=== PATIENT | male | born 1965 | race Caucasian/White ===

== ENCOUNTER 2017-01-09 09:06 | Day surgery (SDC) | payer OTHER ==
[2017-01-09] MEDS ORDERED: LACTATED RINGERS 1,000 ML IV ONE (10:04)
[2017-01-09] MEDS ORDERED: fentaNYL 100 MCG/2 ML VIAL IVP ONE (11:19)
[2017-01-09] MEDS ORDERED: MIDAZOLAM 2 MG/2 ML VIAL IVP ONE (11:19)
== END 2017-01-09 09:07 | disposition home or self-care (01) ==
PROC: 0DBN8ZX Excision of Sigmoid Colon, Via Natural or Artificial Opening Endoscopic, Diagnostic (ICD-10-PCS; principal; 2017-01-09 10:30)
DX: Z12.11 Encounter for screening for malignant neoplasm of colon (principal); D12.7 Benign neoplasm of rectosigmoid junction; K21.9 Gastro-esophageal reflux disease without esophagitis; I10 Essential (primary) hypertension; G47.30 Sleep apnea, unspecified
CPT/HCPCS: 45380; J7120

== ENCOUNTER 2017-08-22 08:42 | Outpatient (CLI) | payer OTHER | END 2017-08-22 08:43 | disposition home or self-care (01) | LOC: SC 08:42 | PROVIDERS: ATTEND Specialist | DX: G47.33 Obstructive sleep apnea (adult) (pediatric) (principal) | CPT/HCPCS: 99212; 99214 ==

== ENCOUNTER 2020-07-11 08:19 | Outpatient (CLI) | payer OTHER ==
--- NOTE | 2020-07-11 08:56 | SLEEP CARE CONSULTATION ---
Information from patient questionnaire entered by Rowan Lackey. I have reviewed and concur with the information entered by Rowan Lackey. This document represents the service I personally performed and the decisions made by , Sophia Ramirez ARNP. History of Present Illness Service Date and Time: 07/11/2020818 Previous diagnosis: Moderate, Obstructive Sleep Apnea-Hypopnea Syndrome AHI: 15.3 (in 2008) Reason for follow up: annual (last seen 2017) Equipment type: CPAP Equipment obtained from: [facility] (unable to get supplies, DME no longer doing supplies) Mask style: Nasal pillows Backup mask available: Yes (old mask) Last cushion change: 2 months Prior sleep studies: Yes Year and Where: 2008 - [facility] Type of Sleep Study: Polysomnography HPI additional information: RUTHY SANTOYO was diagnosed to have moderate, AHI 15.3, obstructive sleep apnea-hypopnea syndrome and returns today for CPAP therapy reestablish care follow-up. CPAP Compliance Data - Data Reviewed with Patient Average duration of nightly device use: 5.9 Compliance rate %: 86.7 Current pressure setting (cmH2O): 5 Humidity settin Heated hose settin Average residual AHI: 2.0 Central apnea: 0.4 Obstructive apnea: 0.5 Average large leak: 1 minute, 4 seconds Subjective Missed days of use due to: reports: illness Patient concerns: denies: aerophagia, mask discomfort, air blowing in eyes, mask leak noise (only if he doesn't shave), condensation in mask/hose, nasal con gestion, dry mouth, nose, throat, epistaxis, other Observed to snore while using device: No Current pressure setting perceived as: comfortable On therapy, patient: reports: sleeping better, awakening more refreshed, being more awake and alert during the day, more rested overall. denies: drowsiness while driving Initial [place] Sleepiness Scale score: 15 (in 2008) Current [place] Sleepiness Scale score: 7 Allergies and Home Medications Drug allergies reviewed: Yes (NKDA) Home medication list reviewed: Yes (Prilosec) Review of Systems Review of systems same as previous: Yes (no changes) Physical Exam Heart Rate: 80 O2 Saturation: 98 Height: 5 ft 9 in Weight: 218 lb Body Mass Index: 32.1 BMI Classification: Obese Impression and Plan 1. Obstructive Sleep Apnea-Hypopnea Syndrome, moderate, with good treatment compliance and good apnea control. On CPAP therapy, the patient has better sleep quality and is more rested overall. Obesity increases the risk of apnea, CPAP p ressure requirements and overall health risks especially cardiovascular and diabetes. Thus patient is advised to lose weight. A diet consultation can be helpful in achieving optimal weight loss goals. Patient encouraged to discuss weightloss with his PCP. The BMI chart was reviewed. Patient's apnea severity and rationale for treatment to reduce apnea, improve sleep quality and reduce cardiovascular and cerebrovascular events was reviewed. I also reviewed the benefit of consistent device use of CPAP for hypertension, gastric reflux, and depression/anxiety. Patient was getting supplies from [employer] and they no longer do CPAP supplies, he will need to transfer to get supplies. Patient was informed that another DME can be used. I will have my branch coordinator inform of DME options. A DWO prescription will then be made. Patient advised to contact this office if further supply problems. * Continue CPAP pressure at 5 cmH2O * Transfer DME * Notify me if snoring with mask or feeling that the pressure is too much or too little * Attempt to lose weight * Call this office if any problems using CPAP * Return for follow up in 1 year, or sooner if concerns arise Counseling Topics: Spare mask, Weight loss health impact Visit Type: In Office Time Spent with Patient (minutes): 21 Provider Statement: I spent 100% of the Face to Face Visit with the patient with greater than 50% spent counseling the patient and coordination of care.
== END 2020-07-11 08:20 | disposition home or self-care (01) ==
LOC: SC 08:19
PROVIDERS: ATTEND Nurse Practitioner Family
DX: G47.33 Obstructive sleep apnea (adult) (pediatric) (principal); E66.9 Obesity, unspecified; Z68.32 Body mass index [BMI] 32.0-32.9, adult
CPT/HCPCS: 99212

== ENCOUNTER 2022-09-28 11:40 | Emergency (ER) | payer OTHER ==
[2022-09-28 12:17] LABS: BASOPHILS # (AUTO) 0.1 10^3/uL (0.0-0.1); BASOPHILS % (AUTO) 1.1 %; EOSINOPHILS # (AUTO) 0.1 10^3/uL (0.0-0.7); EOSINOPHILS % (AUTO) 1.3 %; HGB - HEMOGLOBIN 15.1 g/dL (14.0-18.0); LYMPHOCYTES # (AUTO) 1.1 10^3/uL (1.5-3.5); LYMPHOCYTES % (AUTO) 23.9 %; MEAN CORPUSCULAR HEMOGLOBIN 30.9 pg (27.0-31.0); MEAN CORPUSCULAR HGB CONC 34.3 g/dL (32.0-36.0); MEAN PLATELET VOLUME 8.8 fL (7.4-11.4); MONOCYTES # (AUTO) 0.3 10^3/uL (0.0-1.0); MONOCYTES % (AUTO) 6.3 %; NEUTROPHILS # (AUTO) 3.2 10^3/uL (1.5-6.6); NEUTROPHILS % (AUTO) 67.2 %; PLT - PLATELET COUNT 290 10^3/uL (130-450); RED BLOOD COUNT 4.89 10^6/uL (4.70-6.10); RED CELL DISTRIBUTION WIDTH 13.8 % (12.0-15.0); WHITE BLOOD COUNT 4.7 x10^3/uL (4.8-10.8)
[2022-09-28 12:31] LABS: ACETAMINOPHEN < 10 ug/mL (10-30); ALBUMIN 4.4 g/dL (3.2-5.5); ALBUMIN/GLOBULIN RATIO 1.3 (1.0-2.2); ALKALINE PHOSPHATASE 83 IU/L (42-121); ALT ALANINE AMINOTRANSFERASE 26 IU/L (10-60); AST ASPARTATE AMINOTRANSFERASE 20 IU/L (10-42); BILIRUBIN,TOTAL 0.7 mg/dL (0.2-1.0); BUN - BLOOD UREA NITROGEN 22 mg/dL (6-20); CALCIUM 9.6 mg/dL (8.5-10.3); CARBON DIOXIDE - CO2 27 mmol/L (21-32); CHLORIDE 102 mmol/L (101-111); CREATININE 0.9 mg/dL (0.6-1.2); ETOH - ETHANOL 5.1 mg/dL; GFR - MDRD 87 (>89); GLUCOSE 118 mg/dL (70-100); LIPASE 44 U/L (22-51); SALICYLATE < 6.0 mg/dL; SODIUM 137 mmol/L (135-145); TOTAL PROTEIN 7.7 g/dL (6.7-8.2)
--- NOTE | 2022-09-28 12:42 | ED Physician Documentation ---
History of Present Illness - Stated complaint Stated Complaint: SI - Chief complaint Chief Complaint: MHE - History obtained from History obtained from: Patient, Family - History of Present Illness Pain level max: 0 Pain level now: 0 - Additonal information Additional information: 57-year-old male states that he has a longstanding history of depression. He states that he was seeing a psychiatrist, therapist and had a primary care provider that was prescribing his medications for him but his primary care provider in 2013. He has not been on any medication since then. He was meeting with a new provider today and told him that he had thoughts of suicide, but was not actively suicidal at the moment. They sent him here for evaluation. Patient lives at home with his and his 16-year-old son. He states that he was on several medications in the past including lithium and adderall. Review of Systems Constitutional: denies: Fever, Chills GI: denies: Vomiting Skin: denies: Rash Musculoskeletal: denies: Neck pain, Back pain Neurologic: denies: Headache PD PAST MEDICAL HISTORY - Past Medical History Past Medical History: Yes Cardiovascular: Hypertension Respiratory: Sleep apnea, CPAP use Endocrine/Autoimmune: None GI: GERD : Kidney stones HEENT: None Psych: Bipolar disorder, ADD/ADHD, Claustrophobia Musculoskeletal: None Derm: None - Past Surgical History Past Surgical History: Yes General: Other Ortho: Carpal Tunnel surgery - Present Medications Home Medications: Ambulatory Orders Medication Instructions Recorded Confirmed Omeprazole [PriLOSEC] 40 mg PO BID 01/08/17 01/09/17 Tamsulosin [Flomax] 0.4 mg PO DAILY 01/08/17 01/09/17 - Allergies Allergies/Adverse Reactions: Allergies Allergy/AdvReac Type Severity Reaction Status Date / Time No Known Drug Allergies Allergy Verified 09/28/22 12:00 - Social History Does the pt smoke?: No Smoking Status: Never smoker Does the pt drink ETOH?: No Does the pt have substance abuse?: No - Immunizations Immunizations are current?: Yes - POLST Patient has POLST: No PD ED PE NORMAL - Vitals Vital signs reviewed: Yes - General General: Alert and oriented X 3, No acute distress - HEENT HEENT: PERRL, Moist mucous membranes - Neck Neck: Supple, no meningeal sign - Cardiac Cardiac: RRR - Respiratory Respiratory: No respiratory distress, Clear bilaterally - Abdomen Abdomen: Soft, Non tender, Non distended - Back Back: No CVA TTP, No spinal TTP - Derm Derm: Warm and dry, No rash - Extremities Extremities: No edema, No calf tenderness / cord - Neuro Neuro: Alert and oriented X 3 - Psych Psych: Normal mood, Normal affect Results - Vitals Vitals: Vital Signs - 24 hr 09/28/22 11:56 Temperature 36.6 C Heart Rate 83 Respiratory 14 Rate Blood Pressure 132/82 H O2 Saturation 99 Oxygen O2 Source Room air - Labs Labs: Laboratory Tests 09/28/22 09/28/22 09/28/22 12:13 12:13 12:13 WBC 4.7 L RBC 4.89 Hgb 15.1 Hct 44.0 MCV 90.0 MCH 30.9 MCHC 34.3 RDW 13.8 Plt Count 290 MPV 8.8 Neut # (Auto) 3.2 Lymph # (Auto) 1.1 L [place] # (Auto) 0.3 Eos # (Auto) 0.1 Baso # (Auto) 0.1 Absolute Nucleated RBC 0.00 Nucleated RBC % 0.0 Sodium 137 Potassium 4.0 Chloride 102 Carbon Dioxide 27 Anion Gap 8.0 BUN 22 H Creatinine 0.9 Estimated GFR (MDRD) 87 L Glucose 118 H Calcium 9.6 Total Bilirubin 0.7 AST 20 ALT 26 Alkaline Phosphatase 83 Total Protein 7.7 Albumin 4.4 Globulin 3.3 Albumin/Globulin Ratio 1.3 Lipase 44 TSH 1.07 Urine Color Urine Clarity Urine pH Ur Specific Wheeler Urine Protein Urine Glucose (UA) Urine Ketones Urine Occult Blood Urine Nitrite Urine Bilirubin Urine Urobilinogen Ur Leukocyte Esterase Ur Microscopic Review Urine Culture Comments Salicylates < 6.0 Urine Opiates Screen Ur Oxycodone Screen Urine Methadone Screen Ur Propoxyphene Screen Acetaminophen < 10 L Ur Barbiturates Screen Ur Tricyclics Screen Ur Phencyclidine Scrn Ur Amphetamine Screen U Methamphetamines Scrn U Benzodiazepines Scrn Urine Cocaine Screen U Cannabinoids Screen Ethyl Alcohol 5.1 SARS-CoV-2 (PCR) 09/28/22 09/28/22 12:51 12:54 WBC RBC Hgb Hct MCV MCH MCHC RDW Plt Count MPV Neut # (Auto) Lymph # (Auto) [place] # (Auto) Eos # (Auto) Baso # (Auto) Absolute Nucleated RBC Nucleated RBC % Sodium Potassium Chloride Carbon Dioxide Anion Gap BUN Creatinine Estimated GFR (MDRD) Glucose Calcium Total Bilirubin AST ALT Alkaline Phosphatase Total Protein Albumin Globulin Albumin/Globulin Ratio Lipase TSH Urine Color YELLOW Urine Clarity CLEAR Urine pH 7.0 Ur Specific Wheeler 1.010 Urine Protein NEGATIVE Urine Glucose (UA) NEGATIVE Urine Ketones NEGATIVE Urine Occult Blood NEGATIVE Urine Nitrite NEGATIVE Urine Bilirubin NEGATIVE Urine Urobilinogen 0.2 (NORMAL) Ur Leukocyte Esterase NEGATIVE Ur Microscopic Review NOT INDICATED Urine Culture Comments NOT INDICATED Salicylates Urine Opiates Screen NEGATIVE Ur Oxycodone Screen NEGATIVE Urine Methadone Screen NEGATIVE Ur Propoxyphene Screen NEGATIVE Acetaminophen Ur Barbiturates Screen NEGATIVE Ur Tricyclics Screen NEGATIVE Ur Phencyclidine Scrn NEGATIVE Ur Amphetamine Screen NEGATIVE U Methamphetamines Scrn NEGATIVE U Benzodiazepines Scrn NEGATIVE Urine Cocaine Screen NEGATIVE U Cannabinoids Screen NEGATIVE Ethyl Alcohol SARS-CoV-2 (PCR) NOT DETECTED PD Medical Decision Making - ED course Complexity details: reviewed results, re-evaluated patient, considered differential, d/w patient, d/w senior energy consultant ED course: Patient is medically clear for psychiatric care. Social work was consulted. His laboratory testing including CBC, ER abdominal panel, TSH, urinalysis, tox screen, salicylate, acetaminophen, ethyl alcohol are all negative. COVID test is negative. Social work evaluated the patient and patient agrees for voluntary hospitalization. Patient is graciously accepted to [facility]. COBRA forms completed. This document was made in part using voice recognition software. While efforts are made to proofread this document, sound alike and grammatical errors may occur. Departure - Departure Disposition: [facility] Psych Hosp/Unit DC/Xfer Clinical Impression: Suicidal ideation Condition: Stable
[2022-09-28 12:58] LABS: MUDS CUTOFF CONCENTRATIONS CUTOFF CONC BELOW:
[2022-09-28 13:07] LABS: BILIRUBIN,URINE NEGATIVE (NEGATIVE); GLUCOSE, URINE (UA) NEGATIVE (NEGATIVE); KETONES,URINE (UA) NEGATIVE (NEGATIVE); LEUKOCYTE ESTERASE, URINE NEGATIVE (NEGATIVE); NITRITE,URINE NEGATIVE (NEGATIVE); OCCULT BLOOD,URINE NEGATIVE (NEGATIVE); PROTEIN,URINE NEGATIVE (NEGATIVE); UROBILINOGEN,URINE 0.2 (NORMAL) E.U./dL (NORMAL)
[2022-09-28 13:10] LABS: CLARITY,URINE CLEAR (CLEAR)
[2022-09-28 13:17] LABS: AMPHETAMINE SCREEN,URINE NEGATIVE (NEGATIVE); BARBITURATE SCREEN,UR NEGATIVE (NEGATIVE); BENZODIAZEPINES SCREEN, URINE NEGATIVE (NEGATIVE); COCAINE SCREEN URINE NEGATIVE (NEGATIVE); METHADONE SCREEN, URINE NEGATIVE (NEGATIVE); METHAMPHETAMINES SCREEN, URINE NEGATIVE (NEGATIVE); OPIATE SCREEN, URINE NEGATIVE (NEGATIVE); OXYCODONE SCREEN, URINE NEGATIVE (NEGATIVE); PROPOXYPHENE SCREEN, URINE NEGATIVE (NEGATIVE); THC CANNABINOID SCREEN, URINE NEGATIVE (NEGATIVE); TRICYCLIC ANTIDEPRESSANT,URINE NEGATIVE (NEGATIVE)
[2022-09-28 20:35] VITALS: BP 131/93
== END 2022-09-29 01:30 ==
LOC: ED 11:40
DX: R45.851 Suicidal ideations (principal); Z20.822 Contact with and (suspected) exposure to COVID-19; F31.9 Bipolar disorder, unspecified
CPT/HCPCS: 36415; 80053; 80306; 80307; 80320; 80329; 81001; 81003; 83690; 84443; 85025; 87086; 99285

== ENCOUNTER 2023-01-02 15:47 | Outpatient (CLI) | payer OTHER ==
[2023-01-02 16:19] VITALS: BP 122/76
--- NOTE | 2023-01-02 16:19 | SLEEP CARE CONSULTATION ---
Information from patient questionnaire entered by Lindsay Armstrong. I have reviewed and concur with the information entered by Lindsay Armstrong. This document represents the service I personally performed and the decisions made by , Sophia Ramirez ARNP. History of Present Illness Service Date and Time: 01/02/2023 1547 Previous diagnosis: Moderate, Obstructive Sleep Apnea-Hypopnea Syndrome AHI: 15.3 (in 2008) Reason for follow up: annual (LAST SEEN 09/2019) Equipment type: CPAP (FRANCES REMstar 60 series, s/u 01/2015; D CARD NEEDED FOR DOWNLOAD AND PRESSURE CHANGES) Equipment obtained from: [facility] (unable to get supplies, DME no longer doing supplies) Mask style: Nasal Backup mask available: No Prior sleep studies: Yes Year and Where: 2008 - [facility] Type of Sleep Study: Polysomnography HPI additional information: RUTHY SANTOYO was diagnosed to have moderate, AHI 15.3, obstructive sleep apnea-hypopnea syndrome and returned today for CPAP therapy annual follow-up. Sleep Study - Results Type of Sleep Study: Polysomnography Prior sleep studies: Yes Year and Where: 2008 - [facility] CPAP Compliance Data - Data Reviewed with Patient Average duration of nightly device use: 3 hours 33 minutes Compliance rate %: 42.8 (130/180 days used) Current pressure setting (cmH2O): 5 Average residual AHI: 1.9 Average large leak: 7 secs Subjective Missed days of use due to: reports: family emergency, travel, other (back pain, compressed L4-5) Patient concerns: reports: air blowing in eyes, mask leak noise, dry mouth, nose, throat, other (machine making noises). denies: aerophagia, mask discomfort, condensation in mask/hose, nasal congestion, epistaxis Observed to snore while using device: No Current pressure setting perceived as: comfortable On therapy, patient: reports: sleeping better, more rested overall. denies: drowsiness while driving Initial [place] Sleepiness Scale score: 15 (in 2008) Current [place] Sleepiness Scale score: 8 (01/02/23) Allergies and Home Medications Known drug allergies: No Drug allergies reviewed: Yes Home medication list reviewed: Yes Allergy and home medication list: Allergies No Known Drug Allergies Allergy New Medications: Omeprazole Trazodone Hydroxyzine Quetiapine fumarte Sertraline Review of Systems Review of systems same as previous: No (back pain/sciatica) Physical Exam Vital signs obtained and entered by: LINDSAY Norris MA Blood Pressure: 122/76 (LEFT ARM) Cuff size: regular Heart Rate: 106 O2 Saturation: 98 Height: 5 ft 9 in Weight: 217 lb 3.2 oz Body Mass Index: 32.1 BMI Classification: Obese Impression and Plan 1. Obstructive Sleep Apnea-Hypopnea Syndrome, moderate, with fair treatment compliance and good apnea control. On CPAP therapy, the patient has better sleep quality and is more rested overall. He has had many issues with back/sciatica pain which limits his ability to sleep. Once he is awake, he cannot go back to sleep and his compliance has suffered. I encouraged him to try to get at least four hour to reach compliance on days he uses his CPAP. He states he also needs supplies. He has not gotten any for a long time and he is reusing his old set which is stretched out and leaking around the cushion. I will have my pharmacy operations coordinator inform of DME options. A DWO prescription will then be made. Patient advised to contact this office if further supply problems. He has a K[employer]i REMstar machine that he received in 2014. He did not think his machine was on the recall and so he did not register it. He cannot use machine recently because it is making loud noises that wake him up and keep him awake. The patients CPAP is over 5 years old and of reasonable use. In addition, it is starting to make louder noise, a sign of malfunction. Thus, the CPAP will be updated. A DWO prescription will be made. Compliance guidelines for new device and follow up discussed. Patient's apnea severity and rationale for treatment to reduce apnea, improve sleep quality and reduce cardiovascular and cerebrovascular events was reviewed. I also reviewed the benefit of consistent device use of CPAP for hypertension, gastric reflux, depression and anxiety. 2. Obesity, unspecified. Currently patients BMI is 32.1. Obesity increases the risk of apnea, CPAP pressure requirements and overall health risks especially cardiovascular and diabetes. Thus patient is advised to lose weight. * Continue CPAP pressure at 5 cmH2O * Transfer DME * Update machine * Update supplies * Notify me if snoring with mask or feeling that the pressure is too much or too little * Attempt to lose weight * Call this office if any problems using CPAP * Return for follow up one month after he obtains his new device, or sooner if concerns arise Counseling Topics: Spare mask, Weight loss health impact Visit Type: In Office Time Spent with Patient (minutes): 20 Provider Statement: I spent 100% of the Face to Face Visit with the patient with greater than 50% spent counseling the patient and coordination of care.
== END 2023-01-02 15:48 | disposition home or self-care (01) ==
LOC: SC 15:47
PROVIDERS: ATTEND Nurse Practitioner Family
DX: G47.33 Obstructive sleep apnea (adult) (pediatric) (principal); E66.9 Obesity, unspecified; Z68.32 Body mass index [BMI] 32.0-32.9, adult
CPT/HCPCS: 99212; 99213

== ENCOUNTER 2023-02-26 11:26 | Outpatient (CLI) | payer OTHER ==
--- NOTE | 2023-02-26 11:55 | SLEEP CARE CONSULTATION ---
Information from patient questionnaire entered by Peter Armstrong. I have reviewed and concur with the information entered by Peter Armstrong. This document represents the service I personally performed and the decisions made by me, Sophia Ramirez ARNP. History of Present Illness Service Date and Time: 02/26/2023 1126 Previous diagnosis: Moderate, Obstructive Sleep Apnea-Hypopnea Syndrome AHI: 15.3 (in 2008) Reason for follow up: first compliance after device update Equipment type: CPAP (RESMED Airsense 11, s/u 01/2023) Equipment obtained from: Other (getting supplies) Mask style: Nasal Mask brand: Respironics ([place]) Backup mask available: Yes (old mask) Last cushion change: 1 month Prior sleep studies: Yes Year and Where: 2008 - [facility] Type of Sleep Study: Polysomnography HPI additional information: RUTHY SANTOYO was diagnosed to have moderate, AHI 15.3, obstructive sleep apnea-hypopnea syndrome and returned today for CPAP therapy first compliance after updating device follow-up. Sleep Study - Results Type of Sleep Study: Polysomnography Prior sleep studies: Yes Year and Where: 2008 - [facility] CPAP Compliance Data - Data Reviewed with Patient Average duration of nightly device use: 7 HRS 47 MIN Compliance rate %: 100 (01/26/23-02/24/23; days used) Current pressure setting (cmH2O): 5 Average residual AHI: 1.3 Central apnea: 0.3 Obstructive apnea: 0.9 Average large leak: 1 LPM Subjective Patient concerns: denies: aerophagia, mask discomfort, air blowing in eyes, mask leak noise, condensation in mask/hose, nasal congestion, dry mouth, nose, throat, epistaxis Observed to snore while using device: No Current pressure setting perceived as: comfortable On therapy, patient: reports: sleeping better, awakening more refreshed, being more awake and alert during the day, more rested overall. denies: drowsiness while driving Initial [place] Sleepiness Scale score: 15 (in 2008) Current [place] Sleepiness Scale score: 11 (02/26/23) Allergies and Home Medications Known drug allergies: No Drug allergies reviewed: Yes Home medication list reviewed: Yes (Aspirin, Metoprolol, Tamsulosin) Allergy and home medication list: Allergies No Known Drug Allergies Allergy (Verified 02/25/23 16:08) Review of Systems Review of systems same as previous: No (Atrial Fibrillation; will be having proc edure to get back into rhythm) Physical Exam Vital signs obtained and entered by: PETER Norris MA Blood Pressure: 118/70 (LEFT ARM) Cuff size: long Heart Rate: 101 O2 Saturation: 97 Height: 5 ft 9 in Weight: 222 lb 3.2 oz Body Mass Index: 32.8 BMI Classification: Obese Impression and Plan 1. Obstructive Sleep Apnea-Hypopnea Syndrome, moderate, with good treatment compliance and good apnea control. On CPAP therapy, the patient has better sleep quality and is more rested overall. He was just diagnosed with AFib and will be having a conversion sometime in April-May after his vactions. He has had some fatigue from this condition. He has significant improvement of his sleep apnea and is satisfied with current CPAP therapy. Patient denies problems with oral dryness, nasal congestion, epistaxis, skin irritation or aerophagia. Patient's apnea severity and rationale for treatment to reduce apnea, improve sleep quality and reduce cardiovascular and cerebrovascular events was reviewed. I also reviewed the benefit of consistent device use of CPAP for hypertension, gastric reflux, depression and anxiety. 2. Obesity, unspecified. Currently patients BMI is 32.8. Obesity increases the risk of apnea, CPAP pressure requirements and overall health risks especially cardiovascular and diabetes. Thus patient is advised to lose weight. * Continue CPAP pressure at 5 cmH2O * Notify me if snoring with mask or feeling that the pressure is too much or too little * Attempt to lose weight * Call this office if any problems using CPAP * Return for follow up in 1 year, or sooner if concerns arise Counseling Topics: Weight loss health impact Visit Type: In Office Time Spent with Patient (minutes): 10 Provider Statement: I spent 100% of the Face to Face Visit with the patient with greater than 50% spent counseling the patient and coordination of care.
[2023-02-26 11:59] VITALS: BP 118/70
== END 2023-02-26 11:27 | disposition home or self-care (01) ==
LOC: SC 11:26
PROVIDERS: ATTEND Nurse Practitioner Family
DX: G47.33 Obstructive sleep apnea (adult) (pediatric) (principal); E66.9 Obesity, unspecified; Z68.32 Body mass index [BMI] 32.0-32.9, adult
CPT/HCPCS: 99212

== ENCOUNTER 2024-04-10 08:21 | Outpatient (CLI) | payer OTHER ==
--- NOTE | 2024-04-10 08:55 | Sleep Patient Instructions ---
Sleep Center Visit Summary - Patient Visit Information Reason for Visit: Annual follow-up for CPAP therapy - Patient Instructions Additional Instructions: You will continue with CPAP therapy with pressure set at 5 cmH2O. A supply prescription will be updated with your DME. We encourage you to continue to try to lose weight. Please follow up with the sleep care office in 1 year. - Clinic Information Contact: [facility] [address] [place] [address] [email or web address] T: [phone]
--- NOTE | 2024-04-10 08:58 | SLEEP CARE CONSULTATION ---
Information from patient questionnaire entered by Peter Armstrong. I have reviewed and concur with the information entered by Peter Armstrong. This document represents the service I personally performed and the decisions made by me, Sophia Ramirez ARNP. History of Present Illness Service Date and Time: 04/10/2024820 Previous diagnosis: Moderate, Obstructive Sleep Apnea-Hypopnea Syndrome AHI: 15.3 (in 2008) Reason for follow up: annual (LAST SEEN 02/2023) Equipment type: CPAP (RESMED Airsense 11, s/u 01/2023) Equipment obtained from: Other (getting supplies from [place] and [facility]) Mask style: Nasal (over the nose) Backup mask available: Yes (old mask) Last cushion change: few weeks Prior sleep studies: Yes Year and Where: 2008 - [facility] Type of Sleep Study: Polysomnography HPI additional information: RUTHY SANTOYO was diagnosed to have moderate, AHI 15.3, obstructive sleep apnea-hypopnea syndrome and returned today for CPAP therapy annual follow-up. Sleep Study - Results Type of Sleep Study: Polysomnography Prior sleep studies: Yes Year and Where: 2008 - [facility] CPAP Compliance Data - Data Reviewed with Patient Average duration of nightly device use: 7 HRS 20 MINS Compliance rate %: 78 (04/09/24-04/07/24; 300/365 days used) Current pressure setting (cmH2O): 5 Average residual AHI: 2.3 Central apnea: 1.5 Obstructive apnea: 0.6 Hypopnea: 0.1 Average large leak: 2.1 L/min Subjective Missed days of use due to: reports: family emergency, travel Patient concerns: denies: aerophagia, mask discomfort, air blowing in eyes, mask leak noise, condensation in mask/hose, nasal congestion, dry mouth, nose, throat, epistaxis Observed to snore while using device: No Current pressure setting perceived as: comfortable On therapy, patient: reports: sleeping better, awakening more refreshed, being more awake and alert during the day, more rested overall. denies: drowsiness while driving Initial [place] Sleepiness Scale score: 15 (in 2008) Current [place] Sleepiness Scale score: 10 (04/10/24) Allergies and Home Medications Known drug allergies: No Drug allergies reviewed: Yes Home medication list reviewed: Yes (Lamotrigine 25 mg) Allergy and home medication list: Allergies No Known Drug Allergies Allergy (Verified 04/10/24 08:35) Review of Systems Review of systems same as previous: No (CARDIO VERSION) Physical Exam Vital signs obtained and entered by: PETER Norris MA Blood Pressure: 130/69 (RIGHT ARM) Cuff size: regular Heart Rate: 76 O2 Saturation: 97 Height: 5 ft 9 in Weight: 238 lb Weight change since last visit: 16 lb gain Body Mass Index: 35.1 BMI Classification: Obese Impression and Plan 1. Obstructive Sleep Apnea-Hypopnea Syndrome, moderate, with good treatment compliance and good apnea control. On CPAP therapy, the patient has better sleep quality and is more rested overall. He states he has gotten some supplies from the [place] and is working on switching over to them full-time. He will let us know when he wants to transfer his DME to them once everything is finalized. Patient has significant improvement of their sleep apnea and is satisfied with current CPAP therapy. Patient denies problems with oral dryness, nasal congestion, epistaxis, skin irritation or aerophagia. Patient's apnea severity and rationale for treatment to reduce apnea, improve sleep quality and reduce cardiovascular and cerebrovascular events was reviewed. I also reviewed the benefit of consistent device use of CPAP for hypertension, gastric reflux, depression/anxiety. 2. Obesity, unspecified. Currently patients BMI is 35.1. He is trying to lose weight because of some weight gain. Obesity increases the risk of apnea, CPAP pressure requirements and overall health risks especially cardiovascular and diabetes. Thus patient is advised to continue to try to lose weight. * Continue CPAP pressure at 5 cmH2O * Update supply prescription * Notify me if snoring with mask or feeling that the pressure is too much or too little * Attempt to lose weight * Call this office if any problems using CPAP * Return for follow up in 12 months, or sooner if concerns arise Counseling Topics: Spare mask, Weight loss health impact Prescriptions: Device supplies Follow up with Sleep Care in: 1 year Visit Type: In Office Time Spent with Patient (minutes): 21 Provider Statement: I spent 100% of the Face to Face Visit with the patient with greater than 50% spent counseling the patient and coordination of care.
[2024-04-10 09:12] VITALS: BP 130/69; O2SAT 97
== END 2024-04-10 08:22 | disposition home or self-care (01) ==
LOC: SC 08:21
PROVIDERS: ATTEND Nurse Practitioner Family
DX: G47.33 Obstructive sleep apnea (adult) (pediatric) (principal); E66.9 Obesity, unspecified; Z68.35 Body mass index [BMI] 35.0-35.9, adult
CPT/HCPCS: 99212; 99213